=== PATIENT | male | born 1995 | race Caucasian/White ===

== ENCOUNTER → 2017-02-10 | Outpatient (CLI) | payer OTHER ==
[~2017-02-10] MED LIST: METHACHOLINE KIT (J7674) INH ONE
--- NOTE | 2017-02-10 11:36 | PFTRPT ---
Tech: Guilherme KELLEY RRT Age: 21 Sex: Male Race: Height: 69.00 Inches Weight: 197.00 Lbs BSA: 2.05 Diagnosis: R06.02 METHACHOLINE CHALLENGE REPORT ORDERING PROVIDER: Mandy Arevalo MD DATE OF SERVICE: 02/10/17 INTERPRETATION: The study was of excellent technical quality. Under protocol, methacholine was administered. At a dose of 0.025 mg (0.125 CDUs), a 23% decline in the FEV1 was noted. No PC20 was calculated. Flow rates returned to baseline post bronchodilator administration. IMPRESSION: Positive methacholine challenge study. MTDD
== END ==
LOC: M CARPUL 10:19
PROVIDERS: ATTEND Internal Medicine Pulmonary Disease
DX: R06.2 Wheezing (principal)